=== PATIENT | male | born 1970 | race Caucasian/White ===

== ENCOUNTER → 2020-07-07 | Outpatient (CLI) | payer OTHER ==
[~2020-07-07] MED LIST: AMLODIPINE-BEN1 EAC1 PO; CIALIS5 MG PO; HYDROCHLOROTHIA25 MG PO; NEXIUM20 MG PO; PERCOCET 7.5-31 EACH PO; STOOL SOFTENER250 MG PO; TENORMIN 50 MG50 MG PO; ZOFRAN4 MG PO
== END ==
LOC: KOH-I 10:40
DX: M79.671 Pain in right foot (principal)
CPT/HCPCS: 73630

== ENCOUNTER → 2020-07-09 | Outpatient (CLI) | payer OTHER | LOC: EXRD 06-27 08:30 | DX: K74.60 Unspecified cirrhosis of liver (principal); K76.89 Other specified diseases of liver | CPT/HCPCS: 76700 ==

== ENCOUNTER → 2020-07-14 | Outpatient (CLI) | payer OTHER | LOC: MRI 13:15 | DX: R16.2 Hepatomegaly with splenomegaly, not elsewhere classified (principal); K76.89 Other specified diseases of liver; K74.60 Unspecified cirrhosis of liver; N28.1 Cyst of kidney, acquired | CPT/HCPCS: 74183; A9577 ==

== ENCOUNTER → 2020-07-22 | Outpatient (CLI) | payer OTHER | LOC: EMI 14:54 | DX: M79.671 Pain in right foot (principal); M72.2 Plantar fascial fibromatosis | CPT/HCPCS: 73720; A9577 ==

== ENCOUNTER → 2020-08-05 | Outpatient (CLI) | payer OTHER | LOC: KOH-I 14:23 | DX: Z01.818 Encounter for other preprocedural examination (principal) | CPT/HCPCS: 93926 ==

== ENCOUNTER → 2021-05-19 | Outpatient (CLI) | payer OTHER | LOC: KOH-I 08:14 | DX: M79.645 Pain in left finger(s) (principal); M19.042 Primary osteoarthritis, left hand | CPT/HCPCS: 73130 ==

== ENCOUNTER → 2021-12-12 | Outpatient (CLI) | payer OTHER ==
[2021-12-12 11:46] LABS: HEMOGLOBIN 14.7 gm/dl (14.0-17.5); RED BLOOD COUNT 4.8 M/UL (4.20-5.50); WHITE BLOOD COUNT 5.1 K/UL (4.5-11.0)
[2021-12-12 12:14] LABS: BUN/CREATININE RATIO 41 (0-10)
== END ==
LOC: LAB 11:05
PROVIDERS: Physician Assistant
DX: K72.90 Hepatic failure, unspecified without coma (principal)
CPT/HCPCS: 36415; 80053; 85027; 85610; 85730